=== PATIENT | female | born 1945 | race Caucasian/White ===

== ENCOUNTER 2022-09-14 18:42 | Emergency (ER) | payer OTHER ==
[~2022-09-14] VITALS: Ht 157.5 cm; Wt 70.8 kg
[2022-09-14 20:35] VITALS: BP 163/117
[2022-09-14] MEDS ORDERED: Percocet 5-3251 EACH PO (21:36)
== END 2022-09-14 21:50 | disposition home or self-care (01) ==
LOC: ER 18:42
DX: S43.004A Unspecified dislocation of right shoulder joint, initial encounter (principal); W01.10XA Fall on same level from slipping, tripping and stumbling with subsequent striking against unspecified object, initial encounter; Z87.891 Personal history of nicotine dependence
CPT/HCPCS: 23650; 73020; 73030; 73060; 96374-59; 99283-25; A9270; J2704; J3010; J7030

== ENCOUNTER 2023-03-17 12:18 | Inpatient (IN) | payer OTHER ==
[~2023-03-17] VITALS: Ht 152.4 cm; Wt 69.8 kg
[~2023-03-17 12:18] MED LIST: Percocet 5-3251 EACH PO
[2023-03-17 12:38] LABS: BASOPHILS ABSOLUTE AUTO 0.05 K/mm3 (0.00-0.23); BASOPHILS PERCENT AUTO 1 % (0-2); EOSINOPHILS ABSOLUTE AUTO 0.14 K/mm3 (0.00-0.68); EOSINOPHILS PERCENT AUTO 2 % (0-6); Hematocrit 33.2 % (33.0-51.0); Hemoglobin 10.7 g/dL (11.5-16.0); IMMATURE GRAN ABSOLUTE AUTO 0.03 K/mm3 (0.00-0.10); IMMATURE GRAN PERCENT AUTO 0 % (0-1); LYMPHOCYTES ABSOLUTE AUTO 1.58 K/mm3 (0.84-5.20); LYMPHOCYTES PERCENT AUTO 20 % (21-46); MONOCYTES ABSOLUTE AUTO 0.59 K/mm3 (0.16-1.47); MONOCYTES PERCENT AUTO 7 % (4-13); Mean Corpuscular HGB Conc 32.2 g/dL (31.5-36.5); Mean Corpuscular Volume 90 fL (80-100); Mean Platelet Volume 9.5 fL (9.1-12.4); NEUTROPHILS ABSOLUTE AUTO 5.65 K/mm3 (1.96-9.15); NEUTROPHILS PERCENT AUTO 70 % (41-73); Platelet Count 347 K/mm3 (150-400); RDW Standard Deviation 45.8 fL (35.1-46.3); Red Blood Cell Count 3.69 M/mm3 (3.80-5.20); White Blood Cell Count 8.04 K/mm3 (4.00-11.30)
[2023-03-17 12:56] LABS: Albumin, Blood 3.7 g/dL (3.4-5.0); Bilirubin, Total 0.3 mg/dL (0.1-1.0); Bun/Creatinine Ratio 12.2 (12.0-20.0); Calcium, Blood 9.8 mg/dL (8.5-10.1); Creatinine, Blood 0.74 mg/dL (0.40-1.00); Globulin, Blood 3.7 g/dL (2.2-4.0); Potassium, Blood 3.9 mmol/L (3.5-5.5); Total Protein, Blood 7.4 g/dL (6.4-8.2)
[2023-03-17 18:18] VITALS: BP 160/80
--- NOTE | 2023-03-17 18:56 | NUR ---
SHIFT SUMMARY PATIENT ARRIVED TO UNIT FROM ER AT 1814 WITH SON FOLLOWING BEHIND. PATIENT ALERT. PATIENT ONLY ANSWERING WITH "YES" AND "NO" WHEN ASKED QUESTIONS. PATIENT DOES NOT APPEAR TO BE ABLE TO SAY ANY OTHER WORDS AT THIS TIME. FOR EXAMPLE: PATIENT ASKED IF SHE KNOWS WHAT TOWN WE ARE IN AND STATES "YES" AND THEN ASKED WHAT TOWN AND SHE STATES "[place]". SON STATES THAT CONFUSION STARTED AFTER ATIVAN GIVEN IN ER. PATIENT NOT FOLLOWING DIRECTIONS TO BE ABLE TO ASSESS ANY DEFICITS ON EITHER SIDE OF BODY. PATIENT ON 3 L NC TO KEEP SATS 90% AND GREATER. PATIENT ON RA AT HOME. IRINEO IN IPLACE. PATIENT PASSED NURSE BEDSIDE SWALLOW AND WAS ABLE TO TAKE PO MEDICATIONS ONE AT A TIME WITH NO PROBLEMS. SON DIMAS AT BEDSIDE. BED LOW, CALL LIGHT IN REACH, BED ALARM ON. INTRODUCED METALIZING MACHINE OPERATOR RN TO PATIENT AND SON.
[2023-03-17 19:00] VITALS: BP 175/71
[2023-03-17] MEDS ORDERED: PLAVIX75 MG PO (19:36)
[2023-03-17] MEDS ORDERED: LISI20 PO (19:37)
[2023-03-17] MEDS ORDERED: LIVALO2 MG PO (19:37)
[2023-03-17] MEDS ORDERED: CENTRUM SILVER1 EAC2 PO (19:38)
[2023-03-17] MEDS ORDERED: HYDHCL25 PO (19:38)
[2023-03-17] MEDS ORDERED: ASPIR 8181 M1 PO (19:39)
[2023-03-17] MEDS ORDERED: Vitamin D1000 UNI1 PO (19:39)
[2023-03-17] MEDS ORDERED: CALCIUM 250-D1 EAC1 PO (19:40)
[2023-03-17 20:00] VITALS: BP 175/78
--- NOTE | 2023-03-17 20:00 | NUR ---
ASSUMED CARE OF PT AT 1900. REPORT RECEIVED AT BEDSIDE. PT PRESENTS IN BED. ALERT AND DISORIENTED. DOES NOT FOLLOW COMMANDS OR ANSWER QUESTIONS. PT'S SON, DIMAS IN ROOM. IS ABLE TO ANSWER ADMISSION QUESTIONS AND HISTORY FOR PT. PT IN NO APPARENT DISTRESS. O2 ON AT 3 L/M. PT'S SATURATIONS 100 PERCENT. HAVE SLOWLY TITRATED TO OFF. PT CURRENTLY MAINTAINS 98-99 PERCENT SATURATIONS ON ROOM AIR. HAVE NOTED LEFT DROOP OF MOUTH. WILL REVIEW CHART AND PLAN OF CARE FOR THIS PT.
[2023-03-17 22:00] VITALS: BP 135/57
[2023-03-18] VITALS: BP 194/80
--- NOTE | 2023-03-18 02:48 | NUR ---
PT'S SON REQUESTS THAT PT BE UP TO COMMODE TO ATTEMPT BM. TWO PERSON ASSIST UP. PT CONTINUES WITH ISSUES WITH APHASIA. PT WAS ABLE TO VOID 200 ML. SOME WEAKNESS RIGHT ARM NOTED. PT CURRENTLY BACK TO BED.
--- NOTE | 2023-03-18 03:25 | NUR ---
PT'S HAIR WASHED PENDING EEG THIS DAY.
[2023-03-18 04:08] VITALS: BP 186/96
[2023-03-18 04:15] LABS: BASOPHILS ABSOLUTE AUTO 0.04 K/mm3 (0.00-0.23); BASOPHILS PERCENT AUTO 0 % (0-2); EOSINOPHILS PERCENT AUTO 0 % (0-6); Hematocrit 33.3 % (33.0-51.0); Hemoglobin 10.7 g/dL (11.5-16.0); IMMATURE GRAN ABSOLUTE AUTO 0.06 K/mm3 (0.00-0.10); IMMATURE GRAN PERCENT AUTO 0 % (0-1); LYMPHOCYTES ABSOLUTE AUTO 0.77 K/mm3 (0.84-5.20); LYMPHOCYTES PERCENT AUTO 5 % (21-46); MONOCYTES ABSOLUTE AUTO 0.42 K/mm3 (0.16-1.47); MONOCYTES PERCENT AUTO 3 % (4-13); Mean Corpuscular HGB 28.6 pg (26.0-34.0); Mean Corpuscular HGB Conc 32.1 g/dL (31.5-36.5); Mean Corpuscular Volume 89 fL (80-100); Mean Platelet Volume 9.4 fL (9.1-12.4); NEUTROPHILS ABSOLUTE AUTO 13.67 K/mm3 (1.96-9.15); NEUTROPHILS PERCENT AUTO 91 % (41-73); Platelet Count 409 K/mm3 (150-400); RDW Standard Deviation 45.8 fL (35.1-46.3); Red Blood Cell Count 3.74 M/mm3 (3.80-5.20); White Blood Cell Count 14.96 K/mm3 (4.00-11.30)
[2023-03-18 04:44] LABS: Albumin, Blood 3.7 g/dL (3.4-5.0); Bilirubin, Total 0.4 mg/dL (0.1-1.0); Bun/Creatinine Ratio 27.1 (12.0-20.0); Calcium, Blood 9.6 mg/dL (8.5-10.1); Creatinine, Blood 0.63 mg/dL (0.40-1.00); Globulin, Blood 3.8 g/dL (2.2-4.0); Potassium, Blood 3.9 mmol/L (3.5-5.5); Total Protein, Blood 7.5 g/dL (6.4-8.2)
--- NOTE | 2023-03-18 06:43 | NUR ---
PT HAS IMPROVED SOME IN MENTATION THROUGHOUT THE NIGHT. PT HAS BECOME MORE ENGAGING. REMAINS WITH APHASIA. PT' SONE REMAINS AT BEDSIDE. WILL CONTINUE TO MONITOR PT, AND WILL REPORT OFF TO ONCOMING RN
[2023-03-18 07:23] VITALS: BP 169/82
[2023-03-18 11:08] VITALS: BP 152/80
--- NOTE | 2023-03-18 13:23 | NUR ---
BEDSIDE SWALLOW PT PASSED BEDSIDE SWALLOW BY THIS RN. PER MD ORDERS, ADVANCE TO REGULAR DIET.
--- NOTE | 2023-03-18 13:37 | NUR ---
UPDATE: THIS RN AT PT'S BEDSIDE. PT IS TALKING AND SEEMS TO BE RESPONDING TO A PERSON THAT IS NOT PRESENT IN THE ROOM. PT IS MOVING FINGERS ON BEDSIDE TABLE IF SHE IS TYPING ON A COMPUTER, AND SHE GLANCES UP TO THE CEILING EVERY FEW SECONDS WHILE PERFORMING THESE TYPING MOTIONS. PT'S SON HAD BEEN HELPING HER DRINK SOME WATER, PT BECAME VISIBLY AGITATED WHEN INTERRUPTED FROM HER ACTIVITY. MD NOTIFIED OF THESE CHANGES. PT'S BED IN LOWEST POSITION, BED ALARM IS ON.
[2023-03-18 16:25] VITALS: BP 130/78
--- NOTE | 2023-03-18 18:04 | NUR ---
END OF SHIFT NOTE: PT ALERT, UNABLE TO ASSESS ORIENTATION. APHASIA NOTED WITH HYPERFIXATION ON CERTAIN WORDS SUCH "PHARMACY." APPEARS TO BE EXPERIENCING HALLUCINATIONS, UNABLE TO DESCRIBE AT THIS TIME; SEE PREVIOUS NOTE FOR FURTHER DETAIL. HR 100-110'S, SINUS TACH. SBP 130-160'S. AFEBRILE. SPO2 >93% ON 1L O2 NC. BEDSIDE SWALLOW COMPLETED, PT ADVANCED TO REGULAR DIET PER MD ORDER. PUREWICK IN PLACE DRAINING YELLOW URINE; NO BM THIS SHIFT. PT ATTEMPTED TO GET OUT OF BED MULTIPLE TIMES THIS SHIFT WITH BED ALARM ON, AVASURE CAMERA PLACED IN ROOM TO ENSURE PT SAFETY/PREVENT FALLS. EEG COMPLETED THIS AFTERNOON. PT'S SON AT BEDSIDE. PT SITTING UP IN BED EATING DINNER WITH ASSISTANCE. NO OTHER NEEDS AT THIS TIME. CALL LIGHT WITHIN REACH, BED IN LOWEST POSITION. WILL REPORT TO ONCOMING RN.
[2023-03-18 20:19] VITALS: BP 152/83
[2023-03-19 00:30] VITALS: BP 132/74
[2023-03-19 04:06] LABS: BASOPHILS ABSOLUTE AUTO 0.04 K/mm3 (0.00-0.23); BASOPHILS PERCENT AUTO 0 % (0-2); EOSINOPHILS PERCENT AUTO 0 % (0-6); Hemoglobin 9.4 g/dL (11.5-16.0); IMMATURE GRAN ABSOLUTE AUTO 0.07 K/mm3 (0.00-0.10); IMMATURE GRAN PERCENT AUTO 1 % (0-1); LYMPHOCYTES ABSOLUTE AUTO 1.51 K/mm3 (0.84-5.20); LYMPHOCYTES PERCENT AUTO 12 % (21-46); MONOCYTES ABSOLUTE AUTO 1.22 K/mm3 (0.16-1.47); MONOCYTES PERCENT AUTO 10 % (4-13); Mean Corpuscular HGB 28.8 pg (26.0-34.0); Mean Corpuscular HGB Conc 32.4 g/dL (31.5-36.5); Mean Corpuscular Volume 89 fL (80-100); Mean Platelet Volume 9.7 fL (9.1-12.4); NEUTROPHILS ABSOLUTE AUTO 9.71 K/mm3 (1.96-9.15); NEUTROPHILS PERCENT AUTO 77 % (41-73); Platelet Count 385 K/mm3 (150-400); RDW Coefficient Variation 14.2 % (11.7-14.2); RDW Standard Deviation 45.8 fL (35.1-46.3); Red Blood Cell Count 3.26 M/mm3 (3.80-5.20); White Blood Cell Count 12.55 K/mm3 (4.00-11.30)
[2023-03-19 04:23] LABS: Albumin, Blood 3.5 g/dL (3.4-5.0); Albumin/Globulin Ratio 1.1 (0.8-1.8); Bilirubin, Total 0.4 mg/dL (0.1-1.0); Calcium, Blood 8.8 mg/dL (8.5-10.1); Creatinine, Blood 0.65 mg/dL (0.40-1.00); Globulin, Blood 3.3 g/dL (2.2-4.0); Magnesium, Blood 1.2 mg/dL (1.6-2.4); Phosphorus, Blood 2.4 mg/dL (2.5-4.9); Potassium, Blood 3.2 mmol/L (3.5-5.5); Total Protein, Blood 6.8 g/dL (6.4-8.2)
[2023-03-19 04:43] VITALS: BP 122/65
--- NOTE | 2023-03-19 07:03 | NUR ---
SHIFT SUMMARY ALERT, BUT DIFFICULT TO ASSERTATION ORIENTATION DUE TO APHASIA WITH INTERMITTENT WORD SALAD. EASILY REDIRECTABLE, BUT CAN BE VERY IMPULSIVE/FIDGETY PULLING AT LINES/PUSHING VARIOUS BEDSIDE BUTTONS. BED ALARM ON AND PT's SON REMAINED IN THE ROOM T/O THE NIGHT. CARDIAC, REMAINS IN SR-ST 80-100 S WITH NO DISPLAYS OF DISTRESS. PER MANAGER CONTACT. PT HAS A 21 BEAT RUN OF V-TACH. PT APPEARED TO BE ASYMPTOMATIC DURING THE EVENT. SBP HAS BEEN STABLE RANGING 120-150's. RESPIRATORY MAINTAINS SPO2 >95% ON RA WITH NO SIGNS OF SOB OR RESPIRATORY DISTRESS. GI/, CONTINUES TO BE INCONTINENT OF FERNANDO COLORED URINE. ATTENDS IN PLACE AND CHANGED PRN TO KEEP CLEAN AND DRY. PURWICK ASLO IN PLACE AND CONNECTED TO SUCTION. NO SEIZURES NOTED T/O THE NIGHT. ASSESSED PT FOR RISKS OF ANY IGNITION SOURCES WELL BEHAVIORS FOR INCREASED RISKS OF FIRE DANGER. PT EDUCATED ON COMMON SOURCES OF IGNITION WELL NEED TO KEEP A SAFE ENVIRONMENT. NO NEW ORDERS AT THIS TIME, WILL REPORT TO ONCOMING RN. CARSON HALL OF THIS NOTE
[2023-03-19 10:32] VITALS: BP 111/93
[2023-03-19 11:59] VITALS: BP 148/67
--- NOTE | 2023-03-19 13:31 | NUR ---
Upon receiving a referral for spiritual care, I visited the patient. Her son, Migue is bedside. He explains about the pt's stroke and the damage that it caused. He shares that he has has 2 hrs of sleep in 4 days and how emotionally and physically drained he is. He shares that since the stroke the patient has been unable to speak without an alphabet soup of words and unclear gestures. He then talks at length about his mom and her love, nazia and upbeat nature. He shares about the family unit and that they are all out of state. He also shares about the upcoming decisions that will be made about best d/c plan for the patient. I encourage self-care, normalize their experince and provide therapeutic listening, gentle relocation counselor and prayer. Migue and the patient showed signs of being encouraged in their [employer] nazia and the hopes regarding life post CVA. I will continue to remain available to patient and family.
[2023-03-19 15:41] VITALS: BP 133/71
--- NOTE | 2023-03-19 18:59 | NUR ---
ASSUMED CARE OF PT AT 0700 THIS AM. NO ACUTE CHANGES T/O THE SHIFT. PT'S SPEECH APPEARS TO BE IMPROVING T/O THE DAY, PT MORE ABLE TO FOLLOW AND CARRY ON A CONVERSATION. SON AT BEDSIDE STATES HE FEELS SHE IS IMPROVED WELL. PT WORKED WITH PT/OT/ST, ABLE TO GET OOB WITH ASSISTANCE TO COMMODE. PT IS A 1:1 SUPERVISION OR FEEDER FOR MEALS, MEDICATIONS CRUSHED IN APPLE SAUCE, KEPPRA CHANGED TO IV IT CANNOT BE CRUSHED. LOW U/O NOTED, BLADDER SCANNED FOR 14MLS, DR LINARES NOTIFIED AND ORDERS FOR IVF RECEIVED. MAG, PHOS AND K REPLACED TODAY. PT'S SON REMAINS AT BEDSIDE. BED ALARM ON FOR SAFETY. PT IS CONFUSED AND IMPULSIVE. SON IS ABLE TO USE CALL LIGHT FOR NEEDS. REPORT GIVEN TO DEEPTHI NAIDU RN.
[2023-03-19 19:43] VITALS: BP 144/71
[2023-03-20 00:28] VITALS: BP 108/51
[2023-03-20 03:58] VITALS: BP 126/67
[2023-03-20 04:10] LABS: BASOPHILS ABSOLUTE AUTO 0.06 K/mm3 (0.00-0.23); BASOPHILS PERCENT AUTO 1 % (0-2); EOSINOPHILS ABSOLUTE AUTO 0.05 K/mm3 (0.00-0.68); EOSINOPHILS PERCENT AUTO 0 % (0-6); Hematocrit 24.6 % (33.0-51.0); Hemoglobin 8.1 g/dL (11.5-16.0); IMMATURE GRAN ABSOLUTE AUTO 0.07 K/mm3 (0.00-0.10); IMMATURE GRAN PERCENT AUTO 1 % (0-1); LYMPHOCYTES ABSOLUTE AUTO 2.19 K/mm3 (0.84-5.20); LYMPHOCYTES PERCENT AUTO 18 % (21-46); MONOCYTES ABSOLUTE AUTO 1.26 K/mm3 (0.16-1.47); MONOCYTES PERCENT AUTO 10 % (4-13); Mean Corpuscular HGB 28.8 pg (26.0-34.0); Mean Corpuscular HGB Conc 32.9 g/dL (31.5-36.5); Mean Corpuscular Volume 88 fL (80-100); Mean Platelet Volume 9.4 fL (9.1-12.4); NEUTROPHILS ABSOLUTE AUTO 8.67 K/mm3 (1.96-9.15); NEUTROPHILS PERCENT AUTO 71 % (41-73); Platelet Count 340 K/mm3 (150-400); RDW Coefficient Variation 13.9 % (11.7-14.2); RDW Standard Deviation 44.2 fL (35.1-46.3); Red Blood Cell Count 2.81 M/mm3 (3.80-5.20)
[2023-03-20 04:42] LABS: Albumin/Globulin Ratio 1.1 (0.8-1.8); Bilirubin, Total 0.4 mg/dL (0.1-1.0); Calcium, Blood 8.1 mg/dL (8.5-10.1); Creatinine, Blood 0.59 mg/dL (0.40-1.00); Globulin, Blood 2.8 g/dL (2.2-4.0); Magnesium, Blood 1.6 mg/dL (1.6-2.4); Phosphorus, Blood 2.4 mg/dL (2.5-4.9); Potassium, Blood 2.8 mmol/L (3.5-5.5); Total Protein, Blood 5.8 g/dL (6.4-8.2)
--- NOTE | 2023-03-20 05:25 | NUR ---
SHIFT SUMMARY ALERT, BUT DIFFICULT TO ASSERTATION ORIENTATION DUE TO APHASIA WITH INTERMITTENT WORD SALAD. APHASIA APPEARS TO HAVE SLIGHTLY IMPROVED FOR PT HAS BEEN ABLE TO FORM MORE WORDS/SMALL 2-3 WORD SENTENCES. APPEARS TO EASILY RECOGNIZE FAMILY MEMBERS GIVEN FACIAL EXPRESSIONS AND TONE OF VOICE. NOT IMPULSIVE THIS NIGHT, BUT BED ALARM ON FOR SAFETY AND PT S SON REMAINED IN THE ROOM T/O THE NIGHT. CARDIAC, REMAINS IN SR-ST 80-100'S WITH NO DISPLAYS OF DISTRESS. SBP HAS BEEN STABLE RANGING 100-140'S. RESPIRATORY MAINTAINS SPO2 >95% ON RA WITH NO SIGNS OF SOB OR RESPIRATORY DISTRESS. SOME TACHYPNEA NOTED WITH MODERATE EXERTION. GI/, STRENGTH/COORDINATION HAS IMPROVED FOR PT IS ABLE TO AMBULATE TO BS WITH 2 STAFF ASSIST. TO VOID FERNANDO COLORED URINE. D5 W/ 1/2NS HAS BEEN INFUSING T/O THE NIGHT ORDERED VIA EMAR. NO SEIZURES NOTED T/O THE NIGHT. ASSESSED PT FOR RISKS OF ANY IGNITION SOURCES WELL BEHAVIORS FOR INCREASED RISKS OF FIRE DANGER. PT EDUCATED ON COMMON SOURCES OF IGNITION WELL NEED TO KEEP A SAFE ENVIRONMENT. NO NEW ORDERS AT THIS TIME, WILL REPORT TO ONCOMING RN. CARSON HALL OF THIS NOTE
[2023-03-20 09:53] VITALS: BP 133/72
--- NOTE | 2023-03-20 11:32 | NUR ---
ASSUMED CARE OF PT AT 0700. PTs SPEECH APPEARS TO HAVE IMPROVED SINCE YESTERDAY, ALTHOUGH SHE CONTINUES TO HAVE SOME WORD SALAD. PT'S SON AT BEDSIDE. PT IS SITTING UP IN CHAIR. SEE VS AND ASSESSMENT. NO CONCERNS AT THIS TIME. ELECTROLYTES REPLACED ON NOC SHIFT. PT IS ABLE TO REBOLLEDO, NO SEIZURE ACTIVITY NOTED. PT CONTINUES W IVF PER MD ORDERS. WILL CONITNUE TO MONITOR AND GIVE REPORT TO NUVIA MCKAY WHO WILL RESUME CARE FOR THE REST OF THE SHIFT.
--- NOTE | 2023-03-20 18:17 | NUR ---
SHIFT SUMMARY VSS. PT ALERT AND ORIENTED TO PERSON. PT CONFUSED AND OCCASIONALY RESPONDS INNAPROPRIATELY TO QUESTIONS. ABLE TO BE REORIENTED. FAMILY AT BEDSIDE. NO ACITE EVENTS DURING MY SHIFT. PT LEFT IN A POSITION OF SAFETY WITH BED LOCKED AND IN LOWEST POSITION, ROOM CLEAR OF DEBRIS, NONSKID SOCKS IN PLACE, CALL LIGHT WITHIN REACH, AND ALARM SET.
[2023-03-20 19:35] VITALS: BP 149/67
--- NOTE | 2023-03-21 05:38 | NUR ---
SHIFT SUMMARY PT SITTING UP IN BED AND SON AT BEDSIDE DURING REPORT AT BEGIN OF SHIFT- PT DENIED PAIN, SON INFORMATIVE AND PARTICIPATED IN REPORT- PT UP TO BSC T/O NIGHT A FEW TIMES, PT 1 ASSIST, PT SLEPT T/O NIGHT, IV INFUSING, BED LOW POSITION, CALL LIGHT WITHIN REACH, BED ALARM IN PLACE
[2023-03-21 06:35] LABS: BASOPHILS ABSOLUTE AUTO 0.04 K/mm3 (0.00-0.23); BASOPHILS PERCENT AUTO 0 % (0-2); EOSINOPHILS ABSOLUTE AUTO 0.13 K/mm3 (0.00-0.68); EOSINOPHILS PERCENT AUTO 2 % (0-6); Hematocrit 23.7 % (33.0-51.0); Hemoglobin 7.6 g/dL (11.5-16.0); IMMATURE GRAN ABSOLUTE AUTO 0.05 K/mm3 (0.00-0.10); IMMATURE GRAN PERCENT AUTO 1 % (0-1); LYMPHOCYTES ABSOLUTE AUTO 1.87 K/mm3 (0.84-5.20); LYMPHOCYTES PERCENT AUTO 21 % (21-46); MONOCYTES ABSOLUTE AUTO 0.96 K/mm3 (0.16-1.47); MONOCYTES PERCENT AUTO 11 % (4-13); Mean Corpuscular HGB 29.1 pg (26.0-34.0); Mean Corpuscular HGB Conc 32.1 g/dL (31.5-36.5); Mean Corpuscular Volume 91 fL (80-100); Mean Platelet Volume 9.7 fL (9.1-12.4); NEUTROPHILS ABSOLUTE AUTO 5.84 K/mm3 (1.96-9.15); NEUTROPHILS PERCENT AUTO 66 % (41-73); Platelet Count 319 K/mm3 (150-400); RDW Coefficient Variation 14.5 % (11.7-14.2); RDW Standard Deviation 46.8 fL (35.1-46.3); Red Blood Cell Count 2.61 M/mm3 (3.80-5.20); White Blood Cell Count 8.89 K/mm3 (4.00-11.30)
[2023-03-21 06:49] LABS: Bun/Creatinine Ratio 14.3 (12.0-20.0); Calcium, Blood 8.4 mg/dL (8.5-10.1); Creatinine, Blood 0.63 mg/dL (0.40-1.00); Potassium, Blood 3.3 mmol/L (3.5-5.5)
[2023-03-21 07:12] VITALS: BP 132/63
[2023-03-21 16:11] VITALS: BP 140/61
--- NOTE | 2023-03-21 17:40 | NUR ---
SHIFT SUMMARY PT AND PT'S SON ADMITS PT'S HEALTH STATUS IMPPROVED THIS SHIFT. PT MORE A&O AND ABLE TO WORK W/ PHYSICAL AND SPEECH THERAPY. PT TOLERATED WELL. CALL LIGHT WITHIN REACH AND PT ABLE TO MAKE NEEDS KNOWN.
[2023-03-21 19:31] VITALS: BP 151/63
[2023-03-22 02:36] VITALS: BP 143/67
--- NOTE | 2023-03-22 04:08 | NUR ---
SHIFT SUMMARY PT A/OX4 SON AT BEDSIDE. PT STATED SHE WAS RESTLESS AND ANXIOUS BEFORE BED, VEHICLE SERVICE ATTENDANT ORDERED 1X DOSE HYDROXYZINE BUT BY THE TIME I CAME BACK SHE WAS SLEEPING. I DID GENTLY WAKE HER TO CLARIFY IF SHE STILL WANTED AND SHE SAID NO. PT WOKE UP THIS MORNING WITH GENERALZED ACHES TO BODY. PRN 650 MG TYLENOL IS NOW ON EMAR AND WAS GIVEN X1. PT UP TO BSC TO URINATE X1 OVERNIHT. NOW BACK IN BED, RESTING COMFORTABLY. CALL LIGHT IN REACH.
[2023-03-22 05:49] LABS: BASOPHILS ABSOLUTE AUTO 0.07 K/mm3 (0.00-0.23); BASOPHILS PERCENT AUTO 1 % (0-2); EOSINOPHILS ABSOLUTE AUTO 0.16 K/mm3 (0.00-0.68); EOSINOPHILS PERCENT AUTO 2 % (0-6); Hematocrit 26.1 % (33.0-51.0); Hemoglobin 8.3 g/dL (11.5-16.0); IMMATURE GRAN ABSOLUTE AUTO 0.04 K/mm3 (0.00-0.10); IMMATURE GRAN PERCENT AUTO 0 % (0-1); LYMPHOCYTES ABSOLUTE AUTO 2.21 K/mm3 (0.84-5.20); LYMPHOCYTES PERCENT AUTO 22 % (21-46); MONOCYTES ABSOLUTE AUTO 1.03 K/mm3 (0.16-1.47); MONOCYTES PERCENT AUTO 10 % (4-13); Mean Corpuscular HGB 29.2 pg (26.0-34.0); Mean Corpuscular HGB Conc 31.8 g/dL (31.5-36.5); Mean Corpuscular Volume 92 fL (80-100); Mean Platelet Volume 9.6 fL (9.1-12.4); NEUTROPHILS ABSOLUTE AUTO 6.36 K/mm3 (1.96-9.15); NEUTROPHILS PERCENT AUTO 65 % (41-73); Platelet Count 359 K/mm3 (150-400); RDW Coefficient Variation 14.9 % (11.7-14.2); RDW Standard Deviation 48.4 fL (35.1-46.3); Red Blood Cell Count 2.84 M/mm3 (3.80-5.20); White Blood Cell Count 9.87 K/mm3 (4.00-11.30)
[2023-03-22 06:33] LABS: Albumin, Blood 3.1 g/dL (3.4-5.0); Anion Gap 6 mmol/L (6-16); Blood Urea Nitrogen 14 mg/dL (8-24); Bun/Creatinine Ratio 20.4 (12.0-20.0); CO2, Blood 25 mmol/L (21-32); Calcium, Blood 8.7 mg/dL (8.5-10.1); Chloride, Blood 110 mmol/L (98-108); Creatinine, Blood 0.69 mg/dL (0.40-1.00); Glomerular Filtration Rate 88 (60-); Glucose, Blood 120 mg/dL (70-99); Magnesium, Blood 1.8 mg/dL (1.6-2.4); Phosphorus, Blood 2.6 mg/dL (2.5-4.9); Potassium, Blood 3.6 mmol/L (3.5-5.5); Sodium, Blood 141 mmol/L (136-145)
[2023-03-22 07:35] VITALS: BP 130/64
[2023-03-22 15:51] VITALS: BP 137/66
--- NOTE | 2023-03-22 19:19 | NUR ---
SHIFT SUMMARY: PT A/O X 4, ONE ASSIST WITH WALKER AND GB, PLEASANT AND COOPERATIVE. PT WORKED WITH PT TODAY AND ABLE TO AMBULATE THE UNDERWOOD WELL. WORD SALAD HAS RESOLVED. PT PT HAD NO COMPLAINTS OF PAIN, NAUSEA. NO S/S OF SEIZURE ACTIVITY. EATING WELL AND PARTICIPATING IN CARE.
[2023-03-22 20:56] VITALS: BP 138/58
[2023-03-23 04:39] VITALS: BP 138/54
--- NOTE | 2023-03-23 04:46 | NUR ---
SHIFT SUMMARY PT DOING MUCH BETTER TODAY, SON AT BEDSIDE VERY HELPFUL AND ASSISTED PT TO BATHROOM USING FWW, PT STABLE AND NEEDS MINIMAL ASSIST. SON REMAINED AT BEDSIDE UNTIL 2200 THE WENT HOME, PT WAS GIVEN SLEEPING AID AND SLEPT VERY WELL THROUGHOUT THE NIGHT, WILL CONT TO MONITOR.
[2023-03-23 06:14] LABS: BASOPHILS ABSOLUTE AUTO 0.08 K/mm3 (0.00-0.23); BASOPHILS PERCENT AUTO 1 % (0-2); EOSINOPHILS ABSOLUTE AUTO 0.18 K/mm3 (0.00-0.68); EOSINOPHILS PERCENT AUTO 2 % (0-6); Hematocrit 23.9 % (33.0-51.0); Hemoglobin 7.7 g/dL (11.5-16.0); IMMATURE GRAN ABSOLUTE AUTO 0.05 K/mm3 (0.00-0.10); IMMATURE GRAN PERCENT AUTO 1 % (0-1); LYMPHOCYTES ABSOLUTE AUTO 2.53 K/mm3 (0.84-5.20); LYMPHOCYTES PERCENT AUTO 26 % (21-46); MONOCYTES PERCENT AUTO 9 % (4-13); Mean Corpuscular HGB 29.3 pg (26.0-34.0); Mean Corpuscular HGB Conc 32.2 g/dL (31.5-36.5); Mean Corpuscular Volume 91 fL (80-100); Mean Platelet Volume 9.4 fL (9.1-12.4); NEUTROPHILS ABSOLUTE AUTO 6.06 K/mm3 (1.96-9.15); NEUTROPHILS PERCENT AUTO 62 % (41-73); Platelet Count 354 K/mm3 (150-400); RDW Coefficient Variation 15.1 % (11.7-14.2); Red Blood Cell Count 2.63 M/mm3 (3.80-5.20)
[2023-03-23 06:45] LABS: Anion Gap 6 mmol/L (6-16); Blood Urea Nitrogen 13 mg/dL (8-24); Bun/Creatinine Ratio 17.4 (12.0-20.0); CO2, Blood 26 mmol/L (21-32); Calcium, Blood 8.5 mg/dL (8.5-10.1); Chloride, Blood 110 mmol/L (98-108); Creatinine, Blood 0.75 mg/dL (0.40-1.00); Glomerular Filtration Rate 81 (60-); Glucose, Blood 118 mg/dL (70-99); Potassium, Blood 3.3 mmol/L (3.5-5.5); Sodium, Blood 142 mmol/L (136-145)
[2023-03-23 07:33] VITALS: BP 134/61
--- NOTE | 2023-03-23 13:47 | NUR ---
LATE ENTRY 1300: WRITTEN & VERBAL DC INSTRUCTIONS GIVEN TO PT WITH SON AT BEDSIDE, BOTH VERBALIZED GOOD UNDERSTANDING. ALL CONCERNS & QUESTIONS ADDRESSED. PIV DC'D WITH CATH TIP INTACT, NO REDNESS OR SWELLING NOTED. TELE DC'D, ULTIMATE HOOPS REFEREE NOTIFIED. NO NEW SCRIPTS TO FAX TO PHARM. PT TO PV VIA W/C WITH ALL PERSONAL BELONGINGS.
== END 2023-03-23 13:25 | disposition home health service (06) | DRG 65 ==
LOC: ER 12:18 → PCU 12:19 → MEDS 03-20 13:12 → ENPENDDIS 03-23 10:57 → MEDS 03-23 13:25
PROVIDERS: Emergency Medicine; Family Medicine; ADMIT Internal Medicine
DX: I63.9 Cerebral infarction, unspecified (principal); G81.91 Hemiplegia, unspecified affecting right dominant side; G93.49 Other encephalopathy; G51.0 Bell's palsy; I10 Essential (primary) hypertension; R73.03 Prediabetes; E78.5 Hyperlipidemia, unspecified; I25.10 Atherosclerotic heart disease of native coronary artery without angina pectoris; I65.29 Occlusion and stenosis of unspecified carotid artery; R56.9 Unspecified convulsions; J44.9 Chronic obstructive pulmonary disease, unspecified; R47.01 Aphasia; Z98.890 Other specified postprocedural states; Z91.012 Allergy to eggs; Z91.010 Allergy to peanuts; Z79.899 Other long term (current) drug therapy; Z85.118 Personal history of other malignant neoplasm of bronchus and lung
CPT/HCPCS: 36415; 70450; 70496; 70498; 70551; 73030; 80048; 80053; 80069; 82947; 83735; 84100; 85025; 92523; 92526; 92610; 93005; 93010; 93306; 95819; 96372; 96374; 96375; 97110; 97112; 97116; 97129; 97161; 97166; 97530; 97535; 99285-25; A9270; G0378; J1644; J1953; J2060; J3475; J3480; J7042; J7050; J7060; Q9967